=== PATIENT | male | born 1935 | race Caucasian/White ===

== ENCOUNTER 2017-02-22 07:36 | Observation (INO) | payer OTHER ==
[~2017-02-22] VITALS: Ht 170.2 cm; Wt 85.8 kg
[~2017-02-22 07:36] MED LIST: ASAB PO; ASABAYER PO; ASAEC PO; BYSTOLIC5 MG PO; CO Q-10100 MG PO; COQ10100 MG PO; COREG3 PO; DCN100 PO; DEMA20 PO; ELIQUIS 5 MG TAB5 MG PO; HCTZ25B PO; IMDUR30 PO; KLOR-CON M2020 MEQ PO; LIBRAX PO; MELATONIN5 M1 PO; METHOC500B PO; MIRAPEX250 PO; MULTIPLE VIT PO; NIACIN 500 PO; NORV10 PO; NTG150 SL; OS500+D PO; PERCOCET 10/3251 TAB PO; PERCOCET1 TA4 PO; PLAVIX PO; POT GLUCONAT595 M1 OR; PRAVACHOL40 MG PO; PRILOSEC PO; PRIN10 PO; PROTONIX PO; SIN25 PO; STOOL SOFTEN100 MG PO; ULTRAM50 PO; VITAMIN B-121000 MC1 PO; [UNRECOGNIZED DRUG - OTHER] IM; [UNRECOGNIZED DRUG - REMARK] PO
[2017-02-22 08:28] LABS: BASOPHILS 0.4 %; BASOPHILS ABSOLUTE 0.02 10/3/uL (0.0-0.16); EOSINOPHILS 2.9 %; EOSINOPHILS ABSOLUTE 0.13 10/3/uL (0.0-0.53); HEMOGLOBIN 10.8 g/dL (13.6-17.8); IMMATURE GRANULOCYTES 0.2 %; IMMATURE GRANULOCYTES ABSOLUTE 0.01 10/3/uL (0.0-0.11); LYMPHOCYTES ABSOLUTE 1.04 10/3/uL (0.67-4.30); MEAN CORPUSCULAR HEMOGLOB 28.9 pg (26.0-34.0); MEAN CORPUSCULAR VOLUME 90.4 fL (80-100); MEAN PLATELET VOLUME 8.7 fL (9.2-13.0); MONOCYTES 7.7 %; MONOCYTES ABSOLUTE 0.35 10/3/uL (0.21-1.20); NEUTROPHILS 65.8 %; NEUTROPHILS ABSOLUTE 2.98 10/3/uL (2.02-8.40); RBC DISTRIBUTION WIDTH 13.8 % (12.0-16.0); RED CELL COUNT 3.74 10/6/uL (4.7-6.1); WHITE BLOOD CELLS 4.5 10/3/uL (4.5-10.5)
[2017-02-22 08:32] LABS: HEMATOCRIT 33.8 % (40.0-51.0); MANUAL DIFF NO %; PLATELET COUNT 175 10/3/uL (150-400)
[2017-02-22 08:44] LABS: BUN (BLOOD UREA NITROGEN) 27 MG/DL (6-23); CALCIUM, SERUM 8.7 MG/DL (8.5-10.4); CHLORIDE, SERUM 107 MMOL/L (96-112); CHOL/HDL RATIO(NOT ORDER) 5.8 (0-5); CHOLESTEROL 208 MG/DL (< 200); CO2 (CARBON DIOXIDE) 25 MMOL/L (24-34); CREATININE 1.38 MG/DL (0.70-1.30); GFR AFRICAN AMERICAN 55 ML/MIN (>=60); GFR NON AFRICAN AMERICAN 48 ML/MIN (>=60); GLUCOSE, SERUM 85 MG/DL (60-99); HDL CHOLESTEROL 36 MG/DL (> 39); LDL CHOLESTEROL 143 MG/DL (< 130); NON-HDL CHOLESTEROL 172 MG/DL (< 160); POTASSIUM, SERUM 3.9 MMOL/L (3.5-5.3); SODIUM, SERUM 138 MMOL/L (135-148); TRIGLYCERIDE 146 MG/DL (< 150)
== END 2017-02-23 11:45 | disposition home or self-care (01) ==
LOC: CORLMH 07:36 → SSU1 07:45 → CORLMH 07:46 → SSU1 07:46 → CORLMH 09:30 → SSU1 02-23 11:45
PROVIDERS: Internal Medicine Cardiovascular Disease
DX: I25.708 Atherosclerosis of coronary artery bypass graft(s), unspecified, with other forms of angina pectoris (principal); I25.118 Atherosclerotic heart disease of native coronary artery with other forms of angina pectoris; I48.0 Paroxysmal atrial fibrillation; I48.4 Atypical atrial flutter; I12.9 Hypertensive chronic kidney disease with stage 1 through stage 4 chronic kidney disease, or unspecified chronic kidney disease; N18.3 Chronic kidney disease, stage 3 (moderate); G89.29 Other chronic pain; M54.9 Dorsalgia, unspecified; E78.5 Hyperlipidemia, unspecified; E66.9 Obesity, unspecified; G20 Parkinson's disease; Z88.8 Allergy status to other drugs, medicaments and biological substances; Z79.82 Long term (current) use of aspirin; Z79.01 Long term (current) use of anticoagulants; Z68.37 Body mass index [BMI] 37.0-37.9, adult; Z95.1 Presence of aortocoronary bypass graft; Z79.899 Other long term (current) drug therapy; Z90.49 Acquired absence of other specified parts of digestive tract; Z98.52 Vasectomy status; Z98.890 Other specified postprocedural states
CPT/HCPCS: 80048; 80061; 85025; 85347; 93005; 93459; 99152; 99153; A9270-GY; C1713; C1725; C1760; C1769; C1874; C1884; C1887; C1894; C9604; G0378; J0583; J2250; J2405; J3010; Q9967